=== PATIENT | female | born 1980 | race Caucasian/White ===

== ENCOUNTER 2017-06-16 19:00 | Observation (INO) | payer OTHER, MEDICAID ==
[~2017-06-16] VITALS: Ht 172.7 cm; Wt 98.7 kg
[2017-06-16] MEDS ORDERED: PROPOFOL 10 MG/ML, 20ML ONE (19:12)
[2017-06-16] MEDS ORDERED: FENTANYL PF 100 MCG/2ML ONE ×3 (19:12→21:09)
[2017-06-16] MEDS ORDERED: SUCCINYLCHOLINE 20 MG/ML, 10ML ONE (19:12)
[2017-06-16] MEDS ORDERED: CEFAZOLIN 1,000 MG ONE ×2 (19:14)
[2017-06-16] MEDS ORDERED: BUPIVACAINE/PF 0.5% ONE (19:17)
[2017-06-16] MEDS ORDERED: EPINEPHRINE 1 MG/ML, 1ML ONE (19:17)
[2017-06-16 19:46] LABS: INTERNATIONAL NORMALIZED RATIO 0.96 (0.93-1.1)
[2017-06-16 19:48] LABS: BASOPHILS # (AUTO) 0.08 x10^3/uL (0-0.1); BASOPHILS % (AUTO) 1 % (0-1); EOSINOPHILS # (AUTO) 0.38 x10^3/uL (0-0.4); EOSINOPHILS % (AUTO) 3 % (1-7); LYMPHOCYTES # (AUTO) 2.27 x10^3/uL (1-3.4); LYMPHOCYTES % (AUTO) 18 % (22-44); MD NO; MEAN CORPUSCULAR HEMOGLOBIN 32.4 pg (27.0-34.8); MEAN CORPUSCULAR HGB CONC 34.6 g/dL (32.4-35.8); MEAN CORPUSCULAR VOLUME 93.7 fL (80-100); MONOCYTES # (AUTO) 0.81 x10^3/uL (0.2-0.8); MONOCYTES % (AUTO) 6 % (2-9); NEUTROPHILS # (AUTO) 9.35 x10^3/uL (1.8-6.8); NEUTROPHILS % (AUTO) 73 % (42-75); PLATELET COUNT 358 x10^3/uL (130-400); RED BLOOD COUNT 4.39 x10^6/uL (3.82-5.3)
[2017-06-16] MEDS ORDERED: THROMBIN 5,000 UNIT VIAL TP ONE (20:18)
[2017-06-16] MEDS ORDERED: DEXAMETHASONE 4 MG/ML, 1ML ONE ×2 (20:26)
[2017-06-16] MEDS ORDERED: ONDANSETRON 2MG/ML, 2ML ONE (20:26)
[2017-06-16] MEDS ORDERED: BUPIVACAINE/PF 0.25% INFIL ONE (20:42)
[2017-06-16] MEDS ORDERED: PROMETHAZINE 12.5 MG SUPP PR PRN (21:00)
[2017-06-16] MEDS ORDERED: ACETAMINOPHEN 325 MG TABLET PO PRN (21:00)
[2017-06-16] MEDS ORDERED: MEPERIDINE/PF 25MG/0.5ML IVPush PRN (21:00)
[2017-06-16] MEDS ORDERED: OXYcodone 5 MG/5 ML ORAL.SOL UDC PO PRN (21:00)
[2017-06-16] MEDS ORDERED: FENTANYL PF 100 MCG/2ML IV PRN (21:00)
[2017-06-16] MEDS ORDERED: morphine SULFATE 10 MG/ML, 1ML IV PRN (21:00)
[2017-06-16] MEDS ORDERED: OXYcodone 5 MG/5 ML ORAL.SOL UDC ONE (21:10)
[2017-06-16] MEDS ORDERED: PLEASE ENTER HEIGHT AND WEIGHT MC SCH (21:30)
[2017-06-16] MEDS ORDERED: PLEASE ENTER ALLERGIES MC SCH (21:30)
[2017-06-16 22:30] VITALS: BP 108/62
[2017-06-17 00:14] VITALS: BP 108/62
[2017-06-17] MEDS ORDERED: ONDANSETRON ODT 4 MG PO PRN (01:30)
[2017-06-17] MEDS: ACETAMINOPHEN 325 MG TABLET PO SCH ×3 (01:30→14:11)
[2017-06-17] MEDS ORDERED: ACETAMINOPHEN 325 MG TABLET ONE (01:36)
[2017-06-17] MEDS ORDERED: OXYcodone 5 MG/5 ML ORAL.SOL UDC ONE (01:37)
[2017-06-17] MEDS: OXYcodone 5 MG/5 ML ORAL.SOL UDC PO PRN ×4 (01:43→14:52)
[2017-06-17 02:10] VITALS: BP 109/66
[2017-06-17] MEDS ORDERED: morphine SULFATE 10 MG/ML, 1ML IV PRN (03:30)
[2017-06-17 03:39] VITALS: BP 109/72
[2017-06-17] MEDS: LACTATED RINGERS 1,000 ML IV SCH ×3 (03:47→14:50)
[2017-06-17] MEDS: CLINDAMYCIN PMX 900MG/50ML 50 ML IV SCH ×2 (03:47→11:07)
[2017-06-17 07:31] VITALS: BP 102/67
[2017-06-17 13:46] VITALS: BP 102/64
[2017-06-17] MEDS ORDERED: OXYC-302 PO (16:19)
[2017-06-17] MEDS ORDERED: DOCU-131 PO (16:21)
[2017-06-17] MEDS ORDERED: IBUP-1222 PO (16:22)
[2017-06-17] MEDS ORDERED: CLIN300C8 PO (16:24)
== END 2017-06-17 17:00 | disposition home or self-care (01) ==
LOC: ED 19:05 → 4NOR 22:34 → DCLOUNGE 06-17 16:40
PROVIDERS: ADMIT Obstetrics & Gynecology; ATTEND Obstetrics & Gynecology
DX: N76.4 Abscess of vulva (principal); G40.909 Epilepsy, unspecified, not intractable, without status epilepticus; E11.9 Type 2 diabetes mellitus without complications; Z80.3 Family history of malignant neoplasm of breast; Z80.41 Family history of malignant neoplasm of ovary; Z82.3 Family history of stroke; Z82.49 Family history of ischemic heart disease and other diseases of the circulatory system; Z83.3 Family history of diabetes mellitus; Z86.001 Personal history of in-situ neoplasm of cervix uteri; Z90.710 Acquired absence of both cervix and uterus; Z88.8 Allergy status to other drugs, medicaments and biological substances; Z88.0 Allergy status to penicillin
CPT/HCPCS: 36415; 56405; 85025; 85610; 85730; 86850; 86900; 96365; 96366; G0378; J0171; J0330; J0690; J1100; J2405; J2704; J3010; J3490; J7120

== ENCOUNTER 2018-04-13 12:04 | Day surgery (SDC) | payer OTHER ==
[~2018-04-13] VITALS: Ht 170.2 cm; Wt 124.0 kg
[~2018-04-13 12:04] MED LIST: CLIN300C8 PO; DOCU-131 PO; IBUP-1222 PO; OXYC-302 PO
[2018-04-13] MEDS ORDERED: TOPI100T8 PO (12:45)
[2018-04-13] MEDS ORDERED: CIPR500T3 PO (12:45)
[2018-04-13] MEDS ORDERED: OMEP-110 PO (12:45)
[2018-04-13] MEDS ORDERED: PREG150C PO (12:45)
[2018-04-13] MEDS ORDERED: LAMO200T2 PO (12:45)
[2018-04-13] MEDS ORDERED: ONDA4TAB13 SL (12:45)
[2018-04-13 12:46] VITALS: BP 144/77
[2018-04-13] MEDS ORDERED: LACTATED RINGERS 1,000 ML IV SCH (12:48)
[2018-04-13] MEDS ORDERED: PROPOFOL 10 MG/ML, 20ML ONE (12:58)
[2018-04-13] MEDS ORDERED: ONDANSETRON 2MG/ML, 2ML IV PRN (13:30)
[2018-04-13] MEDS ORDERED: OXYcodone 5 MG/5 ML ORAL.SOL UDC PO PRN (13:30)
[2018-04-13] MEDS ORDERED: ACETAMINOPHEN 325 MG TABLET PO PRN (13:30)
[2018-04-13] MEDS ORDERED: ONDANSETRON ODT 8 MG PO PRN (13:30)
[2018-04-13] MEDS ORDERED: FENTANYL PF 100 MCG/2ML IV PRN (13:30)
== END 2018-04-13 15:40 | disposition home or self-care (01) ==
LOC: OUT 12:04
PROVIDERS: ATTEND Internal Medicine Gastroenterology
DX: K20.0 Eosinophilic esophagitis (principal); K31.89 Other diseases of stomach and duodenum; G43.909 Migraine, unspecified, not intractable, without status migrainosus; Z90.710 Acquired absence of both cervix and uterus; Z98.890 Other specified postprocedural states; Z90.49 Acquired absence of other specified parts of digestive tract; Z88.6 Allergy status to analgesic agent; Z88.1 Allergy status to other antibiotic agents; Z88.0 Allergy status to penicillin; Z88.8 Allergy status to other drugs, medicaments and biological substances
CPT/HCPCS: 43239; 43248; 88305; J2704

== ENCOUNTER 2019-06-13 17:52 | Emergency (ER) | payer OTHER ==
[~2019-06-13] VITALS: Ht 172.7 cm; Wt 127.0 kg
[~2019-06-13 17:52] MED LIST changes: +CIPR500T3 PO; +LAMO200T6 PO; +OMEP-110 PO; +ONDA4TAB13 SL; +PREG150C PO; +TOPI100T8 PO
[2019-06-13 17:56] VITALS: BP 139/94
--- NOTE | 2019-06-13 18:56 | NUR ---
NIPPLE THREADER: PT. TO ROOM FROM LOBBY AT THIS TIME.
== END 2019-06-13 20:58 | disposition home or self-care (01) ==
LOC: ED 19:43
DX: G51.0 Bell's palsy (principal); R20.0 Anesthesia of skin
CPT/HCPCS: 99281

== ENCOUNTER 2019-06-15 15:27 | Emergency (ER) | payer OTHER ==
[~2019-06-15] VITALS: Ht 172.7 cm; Wt 125.4 kg
[2019-06-15 15:34] VITALS: BP 129/91
--- NOTE | 2019-06-15 16:20 | NUR ---
DX'D W/ BELLS PALSY YESTERDAY TO RIGHT FACE. WORSE TODAY (RIGHT LIP MORE NUMBNESS/RIGHT TONGUE MORE NUMB). LT FACIAL SWELLING, SPEECH IMPEDIMENT, POSTERIOR NECK PAIN, AND RIGHT EYE DROOP "I'M TIRED" NO LIMB WEAKNESS
--- NOTE | 2019-06-15 16:29 | NUR ---
PT TO ROOM FROM LOBBY AT THIS TIME.
== END 2019-06-15 17:07 | disposition home or self-care (01) ==
LOC: ED 16:44
DX: G51.0 Bell's palsy (principal)
CPT/HCPCS: 99281

== ENCOUNTER 2019-12-01 07:40 | Emergency (ER) | payer OTHER ==
[~2019-12-01] VITALS: Ht 172.7 cm; Wt 128.0 kg
--- NOTE | 2019-12-01 07:57 | NUR ---
BROUGHT BACK FROM TRIAGE WITH CHIEF COMPLAINT OF NASAL CONGESTION FOR THREE DAYS, DEVELOPED COUGH, BODY ACHES, CHILLS, AND NAUSEA.
--- NOTE | 2019-12-01 08:21 | NUR ---
CARLOS AMANDA AT BEDSIDE FOR EVALUATION.
--- NOTE | 2019-12-01 08:59 | NUR ---
ER SULMA Kaplan at bedside to discuss POC, covid swab collected.
[2019-12-01 09:54] LABS: BASOPHILS % (AUTO) 0 % (0-1); EOSINOPHILS % (AUTO) 3 % (1-7); LYMPHOCYTES % (AUTO) 15 % (22-44); MEAN CORPUSCULAR HGB CONC 32.9 g/dL (32.4-35.8); MEAN PLATELET VOLUME 7.7 fL (7.4-10.4); MONOCYTES % (AUTO) 7 % (2-9); NEUTROPHILS % (AUTO) 75 % (42-75); PLATELET COUNT 240 x10^3/uL (130-400); RED BLOOD COUNT 4.44 x10^6/uL (3.82-5.3); RED CELL DISTRIBUTION WIDTH 13.6 % (9.6-15.2)
[2019-12-01 10:05] LABS: ALBUMIN 3.3 g/dL (3.4-5.0); ANION GAP 8 mmol/L (5-15); CALCIUM 8.7 mg/dL (8.5-10.1); CHLORIDE 116 mmol/L (98-107); CREATININE 0.62 mg/dL (0.55-1.02)
--- NOTE | 2019-12-01 10:15 | NUR ---
[facility]AD[facility] AMBULATION TO BATHROOM
[2019-12-01 10:18] LABS: MD SCAN
[2019-12-01 10:20] VITALS: BP 114/65
--- NOTE | 2019-12-01 10:51 | NUR ---
Discharge instructions reviewed.
== END 2019-12-01 11:03 | disposition home or self-care (01) ==
LOC: ED 08:45
DX: J15.9 Unspecified bacterial pneumonia (principal); J02.9 Acute pharyngitis, unspecified; R06.02 Shortness of breath; Z20.828 Contact with and (suspected) exposure to other viral communicable diseases
CPT/HCPCS: 36415; 71045; 80048; 82040; 85025; 87635; 99284

== ENCOUNTER → 2020-04-15 | Outpatient (CLI) | payer OTHER ==
[~2020-04-15] MED LIST changes: -CIPR500T3 PO; +CIPR500T4 PO; -CLIN300C8 PO; +CLIN300C9 PO; -OXYC-302 PO; +OXYC1TAB14 PO
== END | disposition home or self-care (01) ==
LOC: RAD 07:58
PROVIDERS: ATTEND Student in an Organized Health Care Education/Training Program
DX: K21.9 Gastro-esophageal reflux disease without esophagitis (principal)
CPT/HCPCS: 74240

== ENCOUNTER → 2020-05-06 | Outpatient (CLI) | payer OTHER ==
[~2020-05-06] MED LIST changes: +LAMO200T3 PO; +TOPI100T24 PO
[2020-05-06 11:11] LABS: BASOPHILS % (AUTO) 0 % (0-1); EOSINOPHILS % (AUTO) 2 % (1-7); LYMPHOCYTES % (AUTO) 23 % (22-44); MEAN CORPUSCULAR HEMOGLOBIN 31.5 pg (27.0-34.8); MEAN CORPUSCULAR HGB CONC 33.5 g/dL (32.4-35.8); MEAN PLATELET VOLUME 7.7 fL (7.4-10.4); MONOCYTES % (AUTO) 7 % (2-9); NEUTROPHILS % (AUTO) 68 % (42-75); PLATELET COUNT 275 x10^3/uL (130-400); RED CELL DISTRIBUTION WIDTH 13.7 % (9.6-15.2)
[2020-05-06 11:22] LABS: MD NO
[2020-05-06 12:30] LABS: CHLORIDE 114 mmol/L (98-107)
[2020-05-06 12:54] LABS: % IRON SATURATION 14 % (20-55); ALANINE AMINOTRANSFERASE 31 U/L (12-78); ALBUMIN 3.9 g/dL (3.4-5.0); ALKALINE PHOSPHATASE 86 U/L (45-117); ANION GAP 10 mmol/L (5-15); BILIRUBIN,TOTAL 0.5 mg/dL (0.2-1.0); CALCIUM 8.5 mg/dL (8.5-10.1); CHOL/HDL RATIO 3.3; CHOLESTEROL, TOTAL 127 mg/dL (140-239); CREATININE 0.71 mg/dL (0.55-1.02); HDL CHOL % 31 % (28-40); HDL CHOLESTEROL (DIRECT) 39 mg/dL (40-60); IRON LEVEL 49 mcg/dL (50-170); LDL CHOLESTEROL,CALCULATED 71 mg/dL (54-169); LDL/HDL RATIO 1.8 (0.5-3.0); PREALBUMIN 20.3 mg/dL (20.0-40.0); TOTAL IRON BINDING CAPACITY 346 mcg/dL (250-450); TOTAL PROTEIN 7.3 g/dL (6.4-8.2); TRANSFERRIN 211 mg/dL (200-360); TRIGLYCERIDES 83 mg/dL (50-200); VLDL CHOLESTEROL 17 mg/dL (0-25)
== END | disposition home or self-care (01) ==
LOC: STAR 09:31
PROVIDERS: ATTEND Student in an Organized Health Care Education/Training Program
DX: Z01.812 Encounter for preprocedural laboratory examination (principal); Z20.822 Contact with and (suspected) exposure to COVID-19; J98.4 Other disorders of lung
CPT/HCPCS: 36415; 71046; 80053; 80061; 82306; 82607; 82728; 82746; 83540; 83550; 83970; 84134; 84425; 84466; 85025; 93005; U0003

== ENCOUNTER 2020-05-12 05:54 | Inpatient (IN) | payer OTHER ==
[~2020-05-12] VITALS: Ht 170.2 cm; Wt 120.0 kg
[2020-05-12] MEDS ORDERED: LIDOCAINE-MPF 1%, 2ML ONE (06:46)
[2020-05-12] MEDS ORDERED: EPINEPHRINE 1 MG/ML, 1ML ONE (06:48)
[2020-05-12] MEDS ORDERED: METHYLENE BLUE 50 MG/10 ML AMP ONE (06:48)
[2020-05-12] MEDS ORDERED: BUPIVACAINE/PF 0.5% ONE (06:48)
[2020-05-12] MEDS ORDERED: SCOPOLAMINE 1MG PATCH TD ONE (07:00)
[2020-05-12] MEDS ORDERED: CHLORHEXIDINE 15 ML UDC PO ONE (07:00)
[2020-05-12] MEDS ORDERED: LIDOCAINE-MPF 1%, 2ML INFIL ONE (07:00)
[2020-05-12] MEDS ORDERED: LACTATED RINGERS 1,000 ML IV SCH (07:00)
[2020-05-12] MEDS ORDERED: ACETAMINOPHEN 100 ML IVPB ONE (07:00)
[2020-05-12] MEDS ORDERED: FENTANYL PF 100 MCG/2ML ONE ×4 (07:02→11:10)
[2020-05-12] MEDS ORDERED: MIDAZOLAM 1 MG/ML, 2ML ONE (07:02)
[2020-05-12] MEDS ORDERED: GLYCOPYRROLATE 0.2MG/1ML, 5ML ONE (07:03)
[2020-05-12] MEDS ORDERED: ONDANSETRON 2MG/ML, 2ML ONE ×2 (07:03→10:26)
[2020-05-12] MEDS ORDERED: CEFAZOLIN 1,000 MG ONE (07:03)
[2020-05-12] MEDS ORDERED: SUCCINYLCHOLINE 20 MG/ML, 10ML ONE (07:03)
[2020-05-12] MEDS ORDERED: ROCURONIUM 10MG/ML,5ML ONE (07:03)
[2020-05-12] MEDS ORDERED: PROPOFOL 10 MG/ML, 20ML ONE (07:03)
[2020-05-12] MEDS ORDERED: NEOSTIGMINE 1 MG/ML, 10ML ONE (07:03)
[2020-05-12] MEDS ORDERED: PROMETHAZINE 25 MG/ML, 1ML IVPush PRN (07:30)
[2020-05-12] MEDS ORDERED: ONDANSETRON 2MG/ML, 2ML IVPush PRN (07:30)
[2020-05-12] MEDS ORDERED: HYDROmorphone 1 MG/ML, 1ML INJ IVPush PRN (07:30)
[2020-05-12] MEDS ORDERED: KETOROLAC 30 MG/1 ML IVPush PRN (07:30)
[2020-05-12] MEDS ORDERED: ACETAMINOPHEN 325 MG TABLET PO PRN (07:30)
[2020-05-12] MEDS ORDERED: OXYcodone 5 MG/5 ML ORAL.SOL UDC PO PRN ×2 (07:30→13:30)
[2020-05-12] MEDS ORDERED: MEPERIDINE/PF 25MG/0.5ML IVPush PRN (07:30)
[2020-05-12] MEDS ORDERED: DEXAMETHASONE 4 MG/ML, 1ML ONE (07:56)
[2020-05-12] MEDS: FENTANYL PF 100 MCG/2ML IV PRN ×4 (10:32→11:12)
[2020-05-12] MEDS ORDERED: PROMETHAZINE 25 MG/ML, 1ML ONE (10:46)
[2020-05-12] MEDS ORDERED: KETOROLAC 30 MG/1 ML ONE (11:02)
[2020-05-12] MEDS ORDERED: DIPHENHYDRAMINE 50 MG/ML, 1ML IV PRN (13:00)
[2020-05-12] MEDS ORDERED: PHENOL THROAT SPRAY BOTTLE MM PRN (13:00)
[2020-05-12] MEDS ORDERED: DIPHENHYDRAMINE 25 MG CAPSULE PO PRN (13:00)
[2020-05-12] MEDS ORDERED: ONDANSETRON 2MG/ML, 2ML IV PRN (13:00)
[2020-05-12] MEDS ORDERED: OXYcodone/APAP 5/325MG TABLET PO PRN (13:00)
[2020-05-12 13:15] VITALS: BP 96/65
[2020-05-12] MEDS: POTASSIUM CHLORIDE 20 MEQ in LACTATED RINGERS 1,000 ML IV SCH (14:10)
[2020-05-12] MEDS: ACETAMINOPHEN 100 ML IV SCH ×2 (14:10→20:36)
[2020-05-12] MEDS ORDERED: KETOROLAC 30 MG/1 ML IV PRN (17:00)
[2020-05-12 18:35] VITALS: BP 118/71
[2020-05-12] MEDS ORDERED: ENOXAPARIN 40 MG/0.4 ML SQ SCH (19:00)
[2020-05-12] MEDS: PREGABALIN 150 MG CAPSULE PO SCH (20:34)
[2020-05-12] MEDS: LAMOTRIGINE 200 MG TABLET PO SCH (20:35)
[2020-05-12] MEDS: TOPIRAMATE 100 MG TABLET PO SCH (20:35)
[2020-05-12 23:43] VITALS: BP 87/56
[2020-05-13 01:56] VITALS: BP 91/58
[2020-05-13] MEDS: POTASSIUM CHLORIDE 20 MEQ in LACTATED RINGERS 1,000 ML IV SCH (02:07)
[2020-05-13] MEDS: ACETAMINOPHEN 100 ML IV SCH ×2 (02:08→08:16)
[2020-05-13 05:34] LABS: BASOPHILS % (AUTO) 1 % (0-1); EOSINOPHILS % (AUTO) 1 % (1-7); LYMPHOCYTES % (AUTO) 18 % (22-44); MEAN CORPUSCULAR HEMOGLOBIN 31.5 pg (27.0-34.8); MEAN CORPUSCULAR HGB CONC 33.8 g/dL (32.4-35.8); MEAN PLATELET VOLUME 8.3 fL (7.4-10.4); MONOCYTES % (AUTO) 7 % (2-9); NEUTROPHILS % (AUTO) 74 % (42-75); PLATELET COUNT 284 x10^3/uL (130-400); RED BLOOD COUNT 3.91 x10^6/uL (3.82-5.3); RED CELL DISTRIBUTION WIDTH 14.1 % (9.6-15.2)
[2020-05-13 05:36] LABS: MD NO
[2020-05-13 05:46] LABS: ANION GAP 8 mmol/L (5-15); CHLORIDE 112 mmol/L (98-107); CREATININE 0.63 mg/dL (0.55-1.02)
[2020-05-13 07:15] VITALS: BP 101/88
[2020-05-13] MEDS: LAMOTRIGINE 200 MG TABLET PO SCH (08:15)
[2020-05-13] MEDS: PREGABALIN 150 MG CAPSULE PO SCH (08:15)
[2020-05-13] MEDS: TOPIRAMATE 100 MG TABLET PO SCH (08:16)
[2020-05-13] MEDS ORDERED: POLY17PO5 PO (08:26)
[2020-05-13] MEDS ORDERED: ACET325T14 PO (08:26)
[2020-05-13] MEDS ORDERED: OXYC5SOL8 PO (08:26)
[2020-05-13] MEDS ORDERED: ONDA4TAB7 PO (08:26)
[2020-05-13] MEDS ORDERED: OMEP20CA20 PO (08:26)
== END 2020-05-13 10:40 | disposition home or self-care (01) | DRG 621 ==
LOC: ORIP 05:54 → 4NE 11:41 → DCLOUNGE 05-13 10:32
PROVIDERS: ADMIT Student in an Organized Health Care Education/Training Program; ATTEND Student in an Organized Health Care Education/Training Program
PROC: 0D164ZA Bypass Stomach to Jejunum, Percutaneous Endoscopic Approach (ICD-10-PCS; principal; 2020-05-12 07:30)
DX: E66.01 Morbid (severe) obesity due to excess calories (principal); Z88.0 Allergy status to penicillin; Z88.2 Allergy status to sulfonamides; Z88.5 Allergy status to narcotic agent; Z88.8 Allergy status to other drugs, medicaments and biological substances; Z68.41 Body mass index [BMI] 40.0-44.9, adult
CPT/HCPCS: 36415; S0020; 80048; 82040; 85025; G0378; J0131; J0171; J0690; J1100; J1650; J1885; J2250; J2405; J2550; J2704; J2710; J3010; J3480; Q9968; J0330; J7120